=== PATIENT | female | born 1970 | race Caucasian/White ===

== ENCOUNTER 2021-09-20 11:10 | Emergency (ER) | payer MEDICAID ==
[~2021-09-20] VITALS: Ht 157.5 cm; Wt 82.0 kg
[2021-09-20 12:07] LABS: BASOPHILS % 0.6 % (0.0-2.0); EOSINOPHILS % 1.6 % (0.0-5.0); HEMATOCRIT. 43.6 % (36.0-48.0); HEMOGLOBIN. 14.9 g/dL (12.0-16.0); LYMPHOCYTES % 35.2 % (20.0-50.0); MEAN CORPUSCULAR HEMOGLOBIN 30.4 pg (28.0-32.0); MEAN CORPUSCULAR VOLUME 88.7 fL (81.0-99.0); MEAN PLATELET VOLUME 9.9 fl (7.4-10.4); MONOCYTES % 9.6 % (2.0-8.0); PLATELET 133 x1000/uL (130-400); RED BLOOD CELL COUNT 4.91 mill/uL (4.2-5.4); RED CELL DISTRIBUTION WIDTH 13.5 % (11.6-14.6)
[2021-09-20 12:12] LABS: CHLORIDE 104 mEq/L (98-107)
[2021-09-20 13:30] LABS: HCG SCREEN NEGATIVE
[2021-09-20] MEDS ORDERED: ACETAMINOPHEN 325MG TABLET PO NR (15:00)
[2021-09-20] MEDS ORDERED: MECLIZINE 25MG TABLET PO NR (15:00)
[2021-09-20] MEDS ORDERED: SODIUM CHLORIDE 0.9% 1,000 ML IV NR (15:00)
[2021-09-20 15:17] LABS: CLARITY URINE TURBID (CLEAR); COLOR URINE DARK YELLOW (YELLOW); KETONES URINE 3+ (NEGATIVE); LEUKOCYTE ESTERASE URINE TRACE (NEGATIVE); NITRITE URINE NEGATIVE (NEGATIVE); OCCULT BLOOD URINE NEGATIVE (NEGATIVE); PROTEIN URINE 1+ (NEGATIVE); SPECIFIC GRAVITY URINE 1.026 (1.005-1.030)
[2021-09-20] MEDS ORDERED: MECL-159 MT (16:37)
[2021-09-20] MEDS ORDERED: METF-414 MT (16:37)
[2021-09-20 16:43] VITALS: BP 138/80
[2021-09-20] MEDS ORDERED: ONDANSETRON 4MG ODT PO ONE (16:45)
== END 2021-09-20 16:43 | disposition home or self-care (01) ==
LOC: ER 11:10
DX: R07.89 Other chest pain (principal); R73.9 Hyperglycemia, unspecified; R42 Dizziness and giddiness; M25.512 Pain in left shoulder; R20.2 Paresthesia of skin; F41.9 Anxiety disorder, unspecified
CPT/HCPCS: 36415; 71045; 80053; 81003; 81025; 84484; 84703; 85025; 93005; 99285; J8597

== ENCOUNTER 2024-06-16 11:22 | Emergency (ER) | payer MEDICAID ==
[~2024-06-16] VITALS: Ht 152.4 cm; Wt 84.0 kg
[~2024-06-16 11:22] MED LIST: MECL-299 MT; METF-414 MT
[2024-06-16 11:33] VITALS: O2SAT 99
[2024-06-16 11:38] VITALS: BP 164/76; PULSE 78; RESP 16; TEMP 97.7; O2SAT 99
[2024-06-16] MEDS ORDERED: AMOX1TAB16 MT (13:26)
== END 2024-06-16 13:45 | disposition home or self-care (01) ==
LOC: ER 11:22
DX: K11.20 Sialoadenitis, unspecified (principal); E11.9 Type 2 diabetes mellitus without complications; Z98.890 Other specified postprocedural states; Z79.84 Long term (current) use of oral hypoglycemic drugs
CPT/HCPCS: 99283